=== PATIENT | female | born 1995 | race Caucasian/White ===

== ENCOUNTER 2020-11-22 14:30 | Observation (INO) | payer OTHER ==
[~2020-11-22] VITALS: Ht 160 cm; Wt 88.0 kg
== END 2020-11-22 17:22 | disposition home or self-care (01) ==
LOC: SPU 14:30
PROVIDERS: ADMIT Specialist; ATTEND Specialist
DX: O26.892 Other specified pregnancy related conditions, second trimester (principal); R10.9 Unspecified abdominal pain; Z3A.27 27 weeks gestation of pregnancy
CPT/HCPCS: 81002; G0378

== ENCOUNTER 2020-11-25 12:26 | Outpatient (CLI) | payer OTHER ==
[2020-11-25 13:00] LABS: BASOPHILS # (AUTO) 0.1 K/uL (0.0-0.2); BASOPHILS % (AUTO) 0.6 % (0.0-2.0); EOSINOPHILS # (AUTO) 0.1 K/uL (0.0-0.4); EOSINOPHILS % (AUTO) 0.8 % (0.0-4.0); HEMATOCRIT 34.8 % (36-48); LYMPHOCYTES # (AUTO) 2.1 K/uL (1.0-5.5); LYMPHOCYTES % (AUTO) 24.6 % (20.5-51.5); MEAN CORPUSCULAR HEMOGLOBIN 31 pg (27-31); MEAN CORPUSCULAR HGB CONC 35 % (32-36); MEAN CORPUSCULAR VOLUME 89 fL (79.0-98.0); MONOCYTES # (AUTO) 0.4 K/uL (0.0-1.0); MONOCYTES % (AUTO) 4.5 % (1.7-9.3); NEUTROPHILS % (AUTO) 69.5 % (40.0-70.0); PLATELET COUNT (AUTO) 160 K/uL (130-430); RED CELL DISTRIBUTION WIDTH 14.3 % (9.0-15.0); WHITE BLOOD COUNT (AUTO) 8.7 K/uL (4.8-10.8)
== END 2020-11-25 20:14 | disposition home or self-care (01) ==
LOC: SLB 12:26
PROVIDERS: ATTEND Physician Assistant
DX: Z34.93 Encounter for supervision of normal pregnancy, unspecified, third trimester (principal); Z3A.27 27 weeks gestation of pregnancy
CPT/HCPCS: 36415; 85025; 86592; 86780

== ENCOUNTER 2020-12-09 12:24 | Outpatient (CLI) | payer OTHER | END 2020-12-09 14:00 | disposition home or self-care (01) | LOC: SLB 12:24 | PROVIDERS: ATTEND Specialist | DX: O26.893 Other specified pregnancy related conditions, third trimester (principal); Z3A.29 29 weeks gestation of pregnancy | CPT/HCPCS: 36415; 86886; 86900; 86901 ==

== ENCOUNTER 2021-01-11 12:48 | Observation (INO) | payer OTHER ==
[~2021-01-11] VITALS: Ht 160 cm; Wt 92.1 kg
== END 2021-01-11 16:00 | disposition home or self-care (01) ==
LOC: SPU 12:48
PROVIDERS: ADMIT Specialist; ATTEND Specialist
DX: O36.8130 Decreased fetal movements, third trimester, not applicable or unspecified (principal); Z3A.34 34 weeks gestation of pregnancy
CPT/HCPCS: 59025; 76819; 81002; G0378

== ENCOUNTER 2021-01-28 13:55 | Observation (INO) | payer OTHER | END 2021-01-28 15:15 | disposition home or self-care (01) | LOC: SPU 13:55 | PROVIDERS: ADMIT Specialist; ATTEND Specialist | DX: O62.9 Abnormality of forces of labor, unspecified (principal); Z3A.36 36 weeks gestation of pregnancy | CPT/HCPCS: G0378 ==